=== PATIENT | female | born 1985 | race Caucasian/White ===

== ENCOUNTER 2022-10-03 08:16 | Outpatient (CLI) | payer BC ==
[2022-10-03 09:11] LABS: #Basophils 0.1 10x3/uL (0.0-0.2); #Eosinphils 0.1 10x3/uL (0.0-0.5); #Monocytes 0.4 10x3/uL (0.0-1.1); #Neutrophils 3.8 10x3/uL (1.5-8.4); %Basophils 1.1 % (0.0-2.0); %Eosinophils 1.6 % (0.0-6.0); %Lymphocytes 20.6 % (18.0-47.0); %Monocytes 7.8 % (0.0-10.0); %Neutrophils 68.5 % (40.0-75.0); Hemoglobin 13.4 g/dL (12.0-15.5); Mean Corpuscular Hemoglobin 28.8 pg (27.0-33.0); Mean Corpuscular Volume 87.1 fl (81.6-98.3); Mean Platelet Volume 9.7 fl (7.4-10.4); Platelet Count 326 10x3/uL (150-450); RBC Distribution Width 12.4 % (11.5-14.5); Red Blood Cell (RBC) Count 4.66 10x6/uL (3.90-5.03); White Blood Cell (WBC) Count 5.5 10x3/uL (3.5-10.5)
[2022-10-03 09:26] LABS: ALT (SGPT) 27 U/L (8-55); AST (SGOT) 14 U/L (5-34); Albumin 4.2 g/dL (3.5-5.0); Alkaline Phosphatase 78 U/L (40-110); Anion Gap 14 mmol/L (10-20); BUN (Urea Nitrogen) 8 mg/dL (7.0-18.7); Bilirubin, Direct 0.1 mg/dL (0.1-0.3); Bilirubin, Total 0.3 mg/dL (0.2-1.2); Calc. Creatinine Clearance 0 mL/min (70-130); Carbon Dioxide 23 mmol/L (22-29); Chloride 107 mmol/L (98-107); Estimated GFR 93; Glucose 98 mg/dL (70-105); Potassium 4.1 mmol/L (3.5-5.1); Protein, Total 7.2 g/dL (6.0-8.3); Sodium 140 mmol/L (136-145)
== END 2022-10-03 08:17 | disposition home or self-care (01) ==
LOC: LABBT 08:16
PROVIDERS: ATTEND Surgery
DX: Z01.812 Encounter for preprocedural laboratory examination (principal); K80.20 Calculus of gallbladder without cholecystitis without obstruction
CPT/HCPCS: 80048; 80076; 85025

== ENCOUNTER 2022-10-07 09:33 | Day surgery (SDC) | payer BC ==
[2022-10-03 08:43] VITALS: BMI 30.9
[2022-10-07] MEDS ORDERED: Bupivacaine 0.25% HCL 30 ML VIAL ONE (11:58)
[2022-10-07] MEDS ORDERED: EPINEPHrine 1 MG/ML AMP ONE (11:58)
[2022-10-07] MEDS ORDERED: Indocyanine Green 25 MG/10 ML VIAL ONE (11:58)
[2022-10-07] MEDS ORDERED: Dexamethasone 20 MG/5 ML VIAL ONE (11:59)
[2022-10-07] MEDS ORDERED: Lidocaine 1% PF 5 ML VIAL ONE (11:59)
[2022-10-07] MEDS ORDERED: ePHEDrine Sulfate 50 MG/10 ML VIAL ONE (11:59)
[2022-10-07] MEDS ORDERED: PROPOFOL 200 MG/20 ML VIAL ONE (11:59)
[2022-10-07] MEDS ORDERED: Ondansetron PF 4 MG/2 ML Vial ONE (11:59)
[2022-10-07] MEDS ORDERED: Rocuronium Bromide 10 MG/ML (10ML VIAL) ONE (11:59)
[2022-10-07] MEDS ORDERED: Midazolam HCl 2 mg/2 ml Vial ONE ×2 (12:05→12:12)
[2022-10-07] MEDS ORDERED: fentaNYL 50 mcg/mL 1 mL Vial ONE ×3 (12:12→14:11)
[2022-10-07] MEDS ORDERED: fentaNYL PF 100 MCG/2 ML SYRINGE ONE (12:13)
[2022-10-07] MEDS ORDERED: SUGAMMADEX SODIUM 200 MG/2 ML VIAL ONE (12:13)
[2022-10-07] MEDS ORDERED: Sodium Chloride 0.9% 100 ML ONE (12:26)
[2022-10-07] MEDS ORDERED: CEFAZOLIN 2 GM VIAL ONE (12:26)
[2022-10-07] MEDS ORDERED: HYDROcodone/Acetaminophen 5/325 mg Tablet ONE ×2 (14:49→14:50)
== END 2022-10-07 15:56 | disposition home or self-care (01) ==
LOC: SDC 09:33
PROVIDERS: ATTEND Surgery
PROC: 0FT44ZZ Resection of Gallbladder, Percutaneous Endoscopic Approach (ICD-10-PCS; principal; 2022-10-07)
DX: K80.12 Calculus of gallbladder with acute and chronic cholecystitis without obstruction (principal)
CPT/HCPCS: 88304; C1713; C1889; J0171; J1100; J2250; J2405; J2704; J3010; J3490; S0020

== ENCOUNTER 2023-07-23 16:00 | Outpatient (CLI) | payer BC | END 2023-07-23 16:01 | disposition home or self-care (01) | LOC: SLEEPLAB 16:00 | PROVIDERS: ATTEND Internal Medicine | DX: G47.33 Obstructive sleep apnea (adult) (pediatric) (principal); R53.83 Other fatigue; R51.9 Headache, unspecified; F41.8 Other specified anxiety disorders | CPT/HCPCS: 95800 ==